=== PATIENT | female | born 1990 | race Two or more races ===

== ENCOUNTER 2021-03-02 09:55 | Emergency (ER) | payer MEDICAID, OTHER ==
[~2021-03-02] VITALS: Ht 157.5 cm; Wt 88.0 kg
[2021-03-02 09:55] VITALS: BP 112/62
[2021-03-02] MEDS ORDERED: SODIUM CHLORIDE 0.9% 1,000 ML IVB ONE (10:30)
[2021-03-02] MEDS ORDERED: SODIUM CHLORIDE 0.9% 1,000 ML IV ONE (10:30)
[2021-03-02] MEDS ORDERED: ONDANSETRON HCL 4 MG/2 ML VIAL IV ONE (10:30)
[2021-03-02 11:38] LABS: Basophils # (auto) 0 10 ^3/uL (0-0.2); Basophils % (auto) 0.3 % (0.0-2.0); Eosinophils # (auto) 0.2 10 ^3/uL (0-0.8); Eosinophils % (auto) 2.2 % (0.0-7.0); Hematocrit 38.3 % (36.0-46.0); Hemoglobin 13.2 g/dL (12.2-16.2); Lymphocytes # (auto) 1.2 10 ^3/uL (0.4-5.4); Lymphocytes % (auto) 11.4 % (10.0-50.0); Mean Corpuscular Hemoglobin 30.6 pg (28.0-32.0); Mean Corpuscular Hgb Conc. 34.5 g/dL (32.0-36.0); Mean Corpuscular Volume 88.6 fL (80.0-100.0); Monocytes # (auto) 0.8 10 ^3/uL (0-1.3); Monocytes % (auto) 7.4 % (0.0-12.0); Neutrophils # (auto) 8.3 10 ^3/uL (1.6-8.6); Neutrophils % (auto) 78.7 % (37.0-80.0); Red Blood Cells 4.32 10^6/uL (4.0-5.20); Red Cell Distribution Width 13.2 % (11.8-14.3); White Blood Cell 10.6 10^3/uL (4.4-10.8)
[2021-03-02 11:55] LABS: Potassium 3.8 mmol/L (3.5-5.1)
[2021-03-02 12:01] LABS: Albumin 3.6 g/dL (3.4-5.0); BUN/Creatinine Ratio 13.8; Bilirubin, Total 0.5 mg/dL (0.2-1.0); Calcium 8.8 mg/dL (8.5-10.1)
== END 2021-03-02 17:57 | disposition left against medical advice (07) ==
LOC: ER 09:55
DX: R10.84 Generalized abdominal pain (principal)
CPT/HCPCS: 36415; 74176; 80053; 83690; 85025; 96361; 96374; 99284; J2405

== ENCOUNTER 2022-07-05 02:31 | Emergency (ER) | payer MEDICAID ==
[~2022-07-05] VITALS: Ht 165.1 cm; Wt 91.0 kg
[2022-07-05] MEDS ORDERED: ONDANSETRON HCL 4 MG/2 ML VIAL IV ONE (03:15)
[2022-07-05] MEDS ORDERED: MORPHINE SULFATE 4 MG/ML SYR/VIAL IV ONE (03:15)
[2022-07-05 03:46] LABS: Basophils # (auto) 0 10 ^3/uL (0-0.2); Basophils % (auto) 0.1 % (0.0-2.0); Eosinophils # (auto) 0.2 10 ^3/uL (0-0.8); Eosinophils % (auto) 1.2 % (0.0-7.0); Hematocrit 37.7 % (36.0-46.0); Hemoglobin 12.3 g/dL (12.2-16.2); Lymphocytes # (auto) 1.2 10 ^3/uL (0.4-5.4); Lymphocytes % (auto) 6.4 % (10.0-50.0); Mean Corpuscular Hemoglobin 28.4 pg (28.0-32.0); Mean Corpuscular Hgb Conc. 32.7 g/dL (32.0-36.0); Mean Corpuscular Volume 86.9 fL (80.0-100.0); Monocytes # (auto) 0.9 10 ^3/uL (0-1.3); Monocytes % (auto) 4.7 % (0.0-12.0); Neutrophils % (auto) 87.6 % (37.0-80.0); Red Blood Cells 4.33 10^6/uL (4.0-5.20); Red Cell Distribution Width 13.4 % (11.8-14.3); White Blood Cell 18.3 10^3/uL (4.4-10.8)
[2022-07-05 04:03] LABS: Albumin 3.8 g/dL (3.4-5.0); BUN/Creatinine Ratio 17.2; Calcium 9.4 mg/dL (8.5-10.1); Potassium 4.2 mmol/L (3.5-5.1)
[2022-07-05 04:05] LABS: Bilirubin, Total 0.3 mg/dL (0.2-1.0); Total Protein 7.3 g/dL (6.4-8.2)
[2022-07-05] MEDS ORDERED: FAMOTIDINE (10MG/ML) 2ML VL IV ONE (04:15)
[2022-07-05 04:47] LABS: Urine WBC None Seen /hpf (0 - 5)
[2022-07-05 05:02] LABS: Urine Bacteria NONE SEEN /hpf (None Seen); Urine Blood Negative /uL (Negative); Urine Specific Gravity 1.004 (1.001-1.035)
[2022-07-05] MEDS ORDERED: FAMO20TA10 PO (06:14)
[2022-07-05] MEDS ORDERED: ONDA-144 PO (06:14)
[2022-07-05] MEDS ORDERED: PANTOPRAZOLE 40 MG/10 ML VIAL INJ IV ONE (06:15)
[2022-07-05 06:51] VITALS: BP 99/62
== END 2022-07-05 07:00 | disposition home or self-care (01) ==
LOC: EDBD 02:31 → ER 02:31 → EDUNIT# 02:31 → ER 07:00
DX: R10.11 Right upper quadrant pain (principal); J45.909 Unspecified asthma, uncomplicated; Z90.49 Acquired absence of other specified parts of digestive tract
CPT/HCPCS: 36415; 74176; 76705; 80053; 81001; 81025; 83690; 84484; 85025; 96374; 96375; 99285; C9113; J2270; J2405

== ENCOUNTER 2022-11-05 23:23 | Emergency (ER) | payer MEDICAID, OTHER ==
[~2022-11-05] VITALS: Ht 160 cm; Wt 101.9 kg
[~2022-11-05 23:23] MED LIST: FAMO20TA10 PO; ONDA-144 PO
[2022-11-06] MEDS ORDERED: KETOROLAC TROMETH 30 MG/ML 1ML VIAL IM ONE (03:15)
[2022-11-06] MEDS ORDERED: ONDANSETRON ODT 4 MG TAB PO ONE (05:15)
[2022-11-06] MEDS ORDERED: HYDROcodone-ACET 5/325MG TAB PO ONE (05:15)
[2022-11-06 05:20] VITALS: BP 113/59
[2022-11-06] MEDS ORDERED: HYDR-4902 PO (05:21)
[2022-11-06] MEDS ORDERED: ONDA-144 PO (05:21)
== END 2022-11-06 05:31 | disposition home or self-care (01) ==
LOC: ER 23:23
DX: R51.9 Headache, unspecified (principal); J45.909 Unspecified asthma, uncomplicated; F17.210 Nicotine dependence, cigarettes, uncomplicated; Z90.49 Acquired absence of other specified parts of digestive tract; W18.39XA Other fall on same level, initial encounter; Y93.89 Activity, other specified; Y92.89 Other specified places as the place of occurrence of the external cause; Y99.8 Other external cause status
CPT/HCPCS: 70450; 96372; 99285; J1885; Q0162

== ENCOUNTER 2022-12-30 22:00 | Emergency (ER) | payer OTHER ==
[~2022-12-30] VITALS: Ht 160 cm; Wt 98.7 kg
[~2022-12-30 22:00] MED LIST changes: +HYDR-4902 PO
[2022-12-30] MEDS ORDERED: KETOROLAC TROMETH 60MG/2ML VIAL IM ONE (23:45)
[2022-12-30] MEDS ORDERED: DexAMETHasone SOD PHOS 10MG/1ML VIAL INJ IM ONE (23:45)
[2022-12-31] MEDS ORDERED: IBUP-1455 PO (00:43)
[2022-12-31] MEDS ORDERED: HYDR-4902 PO (00:43)
[2022-12-31 00:49] VITALS: BP 137/84
== END 2022-12-31 00:55 | disposition home or self-care (01) ==
LOC: ER 22:00
DX: M54.2 Cervicalgia (principal); R51.9 Headache, unspecified; G89.29 Other chronic pain; F17.210 Nicotine dependence, cigarettes, uncomplicated; F14.10 Cocaine abuse, uncomplicated; J45.909 Unspecified asthma, uncomplicated; E66.01 Morbid (severe) obesity due to excess calories; Z90.49 Acquired absence of other specified parts of digestive tract; Z76.0 Encounter for issue of repeat prescription; Z68.38 Body mass index [BMI] 38.0-38.9, adult
CPT/HCPCS: 96372; 99284; J1100; J1885

== ENCOUNTER 2023-01-12 01:33 | Emergency (ER) | payer BC, MEDICAID ==
[~2023-01-12] VITALS: Ht 160 cm; Wt 100.9 kg
[~2023-01-12 01:33] MED LIST changes: +IBUP-1455 PO
[2023-01-12 07:15] VITALS: BP 110/64; PULSE 75; RESP 18; TEMP 97.6; O2SAT 98
[2023-01-12] MEDS ORDERED: HYDROcodone-ACET 5/325MG TAB PO ONE (07:30)
[2023-01-12] MEDS ORDERED: DexAMETHasone SOD PHOS 10MG/1ML VIAL INJ IM ONE (07:30)
[2023-01-12] MEDS ORDERED: KETOROLAC TROMETH 60MG/2ML VIAL IM ONE (07:30)
[2023-01-12] MEDS ORDERED: ZOFR4T PO (07:50)
[2023-01-12] MEDS ORDERED: CYCL-839 PO (07:50)
[2023-01-12] MEDS ORDERED: IBU600T PO (07:50)
[2023-01-12] MEDS ORDERED: HYDR-4902 PO (08:00)
== END 2023-01-12 07:55 | disposition home or self-care (01) ==
LOC: ER 01:33
DX: M54.2 Cervicalgia (principal); R51.9 Headache, unspecified; J45.909 Unspecified asthma, uncomplicated; F17.210 Nicotine dependence, cigarettes, uncomplicated; F15.90 Other stimulant use, unspecified, uncomplicated; Z90.49 Acquired absence of other specified parts of digestive tract; Z79.899 Other long term (current) drug therapy; Z76.0 Encounter for issue of repeat prescription
CPT/HCPCS: 96372; 99284; J1100; J1885

== ENCOUNTER 2023-03-06 10:22 | Emergency (ER) | payer BC, MEDICAID ==
[~2023-03-06] VITALS: Ht 160 cm; Wt 102.3 kg
[~2023-03-06 10:22] MED LIST changes: +CYCL-839 PO; +IBU600T PO; +ZOFR4T PO
[2023-03-06 10:35] VITALS: BP 133/86; PULSE 70; RESP 18; O2SAT 96
== END 2023-03-06 11:35 | disposition left against medical advice (07) ==
LOC: ER 10:22
DX: T74.21XA Adult sexual abuse, confirmed, initial encounter (principal); J45.909 Unspecified asthma, uncomplicated; F17.210 Nicotine dependence, cigarettes, uncomplicated; F14.10 Cocaine abuse, uncomplicated; Z90.49 Acquired absence of other specified parts of digestive tract

== ENCOUNTER 2023-05-23 01:13 | Emergency (ER) | payer MEDICAID ==
[~2023-05-23] VITALS: Ht 157.5 cm; Wt 102.8 kg
[2023-05-23 02:25] LABS: COVID19 ANTIGEN SOFIA FIA NEGATIVE (NEGATIVE)
[2023-05-23 02:32] LABS: Rapid Influenza A Negative (Negative)
[2023-05-23 02:33] LABS: Rapid Influenza B Positive (Negative)
[2023-05-23] MEDS ORDERED: IBUPROFEN 400 MG TAB PO ONE (03:15)
[2023-05-23 06:04] VITALS: BP 119/53; PULSE 71; RESP 16; TEMP 98.7; O2SAT 98
== END 2023-05-23 06:28 | disposition home or self-care (01) ==
LOC: ER 01:13
DX: J10.1 Influenza due to other identified influenza virus with other respiratory manifestations (principal); J45.909 Unspecified asthma, uncomplicated; F17.210 Nicotine dependence, cigarettes, uncomplicated; R07.89 Other chest pain; Z90.49 Acquired absence of other specified parts of digestive tract; Z79.1 Long term (current) use of non-steroidal anti-inflammatories (NSAID); Z79.899 Other long term (current) drug therapy; Z20.822 Contact with and (suspected) exposure to COVID-19
CPT/HCPCS: 36415; 71045; 87426; 87804

== ENCOUNTER 2023-10-21 13:03 | Emergency (ER) | payer MEDICAID ==
[~2023-10-21] VITALS: Ht 157.5 cm; Wt 102.9 kg
[2023-10-21 14:07] VITALS: BP 121/72; PULSE 88; RESP 16; TEMP 97.6; O2SAT 96
[2023-10-21] MEDS ORDERED: IBUP-1456 PO (14:29)
== END 2023-10-21 14:41 | disposition home or self-care (01) ==
LOC: ER 13:03
DX: S93.601A Unspecified sprain of right foot, initial encounter (principal); J45.909 Unspecified asthma, uncomplicated; F17.210 Nicotine dependence, cigarettes, uncomplicated; Z90.49 Acquired absence of other specified parts of digestive tract; Z79.1 Long term (current) use of non-steroidal anti-inflammatories (NSAID); Z79.899 Other long term (current) drug therapy; W20.8XXA Other cause of strike by thrown, projected or falling object, initial encounter; Y93.89 Activity, other specified; Y92.89 Other specified places as the place of occurrence of the external cause; Y99.8 Other external cause status
CPT/HCPCS: 73630

== ENCOUNTER 2023-12-30 22:42 | Emergency (ER) | payer MEDICAID ==
[~2023-12-30] VITALS: Ht 157.5 cm; Wt 104.0 kg
[~2023-12-30 22:42] MED LIST changes: +IBUP-1456 PO
[2023-12-30 22:48] VITALS: BP 123/79; PULSE 99; RESP 16; TEMP 98.1; O2SAT 97
[2023-12-31] MEDS ORDERED: IBUP-1455 PO (00:04)
[2023-12-31] MEDS ORDERED: GABA-339 PO (00:04)
[2023-12-31] MEDS: KETOROLAC TROMETH 60MG/2ML VIAL IM ONE (00:30)
== END 2023-12-31 00:35 | disposition home or self-care (01) ==
LOC: ER 22:42
DX: G89.29 Other chronic pain (principal); M54.2 Cervicalgia; J45.909 Unspecified asthma, uncomplicated; R20.0 Anesthesia of skin; F17.210 Nicotine dependence, cigarettes, uncomplicated; F11.10 Opioid abuse, uncomplicated; Z90.49 Acquired absence of other specified parts of digestive tract
CPT/HCPCS: 96372; 99283; J1885

== ENCOUNTER 2024-01-27 18:01 | Emergency (ER) | payer MEDICAID ==
[~2024-01-27] VITALS: Ht 157.5 cm; Wt 102.8 kg
[~2024-01-27 18:01] MED LIST changes: +GABA-339 PO
[2024-01-27 19:56] VITALS: BP 126/78; PULSE 72; RESP 16; TEMP 98.6; O2SAT 99
[2024-01-27] MEDS: HYDROcodone-ACET 10/325MG TAB PO ONE (20:26)
[2024-01-27] MEDS: ONDANSETRON ODT 4 MG TAB PO ONE (20:26)
[2024-01-27] MEDS: KETOROLAC TROMETH 60MG/2ML VIAL IM ONE (20:27)
[2024-01-27] MEDS ORDERED: HYDR-4798 PO (21:57)
[2024-01-27] MEDS ORDERED: IBUP-1456 PO (21:59)
[2024-01-28] MEDS ORDERED: METH4PAK PO (18:56)
[2024-01-28] MEDS ORDERED: NAPR-957 PO (18:56)
== END 2024-01-27 22:39 | disposition home or self-care (01) ==
LOC: ER 18:07
DX: S92.151A Displaced avulsion fracture (chip fracture) of right talus, initial encounter for closed fracture (principal); M25.462 Effusion, left knee; M25.461 Effusion, right knee; J45.909 Unspecified asthma, uncomplicated; F17.210 Nicotine dependence, cigarettes, uncomplicated; F14.90 Cocaine use, unspecified, uncomplicated; F19.90 Other psychoactive substance use, unspecified, uncomplicated; Z98.890 Other specified postprocedural states; Z79.899 Other long term (current) drug therapy; W01.0XXA Fall on same level from slipping, tripping and stumbling without subsequent striking against object, initial encounter; Y93.01 Activity, walking, marching and hiking; Y92.89 Other specified places as the place of occurrence of the external cause; Y99.8 Other external cause status
CPT/HCPCS: 29515; 73562; 73600; 96372; 99284; J1885; Q0162

== ENCOUNTER 2024-01-28 16:34 | Emergency (ER) | payer MEDICAID ==
[~2024-01-28] VITALS: Ht 160 cm; Wt 104.0 kg
[2024-01-28] MEDS: HYDROcodone-ACET 10/325MG TAB PO ONE (18:49)
[2024-01-28 18:50] VITALS: BP 145/70; PULSE 65; RESP 17; TEMP 98.1; O2SAT 96
[2024-01-28] MEDS ORDERED: METH4PAK PO (18:56)
[2024-01-28] MEDS ORDERED: NAPR-957 PO (18:56)
== END 2024-01-28 19:19 | disposition home or self-care (01) ==
LOC: ER 16:34
DX: S92.154A Nondisplaced avulsion fracture (chip fracture) of right talus, initial encounter for closed fracture (principal); J45.909 Unspecified asthma, uncomplicated; F17.210 Nicotine dependence, cigarettes, uncomplicated; F15.90 Other stimulant use, unspecified, uncomplicated; F14.10 Cocaine abuse, uncomplicated; Z90.49 Acquired absence of other specified parts of digestive tract; Z79.899 Other long term (current) drug therapy; W18.30XA Fall on same level, unspecified, initial encounter; Y93.89 Activity, other specified; Y92.89 Other specified places as the place of occurrence of the external cause; Y99.8 Other external cause status
CPT/HCPCS: 29515

== ENCOUNTER 2024-02-17 21:04 | Emergency (ER) | payer MEDICAID ==
[~2024-02-17] VITALS: Ht 157.5 cm; Wt 106.0 kg
[~2024-02-17 21:04] MED LIST changes: +METH4PAK PO; +NAPR-957 PO
[2024-02-17 21:15] VITALS: BP 113/75; PULSE 78; RESP 18; O2SAT 98
== END 2024-02-17 21:27 | disposition left against medical advice (07) ==
LOC: ER 21:04
DX: R22.41 Localized swelling, mass and lump, right lower limb (principal); Z53.21 Procedure and treatment not carried out due to patient leaving prior to being seen by health care provider

== ENCOUNTER 2024-02-24 21:36 | Emergency (ER) | payer MEDICAID ==
[~2024-02-24] VITALS: Ht 157.5 cm; Wt 104.1 kg
[2024-02-24 22:00] VITALS: BP 123/73; PULSE 106; RESP 20; O2SAT 96
[2024-02-25] MEDS: OXYCODONE W/ ACETAMINOPHEN 5/325MG TABLET PO ONE (00:41)
[2024-02-25] MEDS: KETOROLAC TROMETH 60MG/2ML VIAL IM ONE (00:42)
== END 2024-02-25 01:26 | disposition home or self-care (01) ==
LOC: ER 21:36
DX: S92.154D Nondisplaced avulsion fracture (chip fracture) of right talus, subsequent encounter for fracture with routine healing (principal); J45.909 Unspecified asthma, uncomplicated; F17.210 Nicotine dependence, cigarettes, uncomplicated; F15.90 Other stimulant use, unspecified, uncomplicated; Z79.899 Other long term (current) drug therapy; Z79.1 Long term (current) use of non-steroidal anti-inflammatories (NSAID); Z90.49 Acquired absence of other specified parts of digestive tract; X58.XXXA Exposure to other specified factors, initial encounter
CPT/HCPCS: 29515; 96372; 99283; J1885